=== PATIENT | male | born 1940 | race Caucasian/White ===

== ENCOUNTER 2019-03-06 09:48 | Inpatient (IN) ==
[2019-03-06] MEDS ORDERED: SODIUM CHLORIDE 0.9% 1000ML 1,000 ML IV SCH (10:30)
[2019-03-06 10:49] LABS: Prothrombin Time 10.6 Seconds (9.0-12.0)
[2019-03-06 10:58] LABS: Hemoglobin 6.6 g/dL (14.0-18.0); Mean Corpuscular Hemoglobin 26.5 pg (25-34); Mean Corpuscular Hgb Conc 31.4 g/dL (32-36); Mean Corpuscular Volume 84.3 fL (80-100); Mean Platelet Volume 9.6 fL (7.4-10.4); Platelet Count 389 K/uL (130-400); RDW Coefficient of Variation 15.7 % (11.5-14.5); RDW Standard Deviation 48.1 fL (36.4-46.3); Red Blood Count 2.49 M/uL (4.7-6.1); White Blood Count 12.73 K/uL (4.8-10.8)
[2019-03-06 10:59] LABS: Alanine Aminotransferase 24 U/L (12-78); Albumin Level 3.1 gm/dl (3.4-5.0); Aspartate Aminotransferase 31 U/L (15-37); BUN Creatinine Ratio 18.4 (10-20); Blood Urea Nitrogen 32 mg/dl (7-18); Calcium 8.8 mg/dl (8.5-10.1); Carbon Dioxide 22 mmol/L (21-32); Chloride 104 mmol/L (98-107); Est GFR (African American) 42.3; Est GFR (Non-African American) 36.5; Glucose 142 mg/dl (70-99); Lipase 125 U/L (73-393); Potassium 4.7 mmol/L (3.5-5.1); Sodium 134 mmol/L (136-145)
[2019-03-06 11:02] LABS: Albumin Globulin Ratio 0.7 (0.9-2); Alkaline Phosphatase 140 U/L (45-117); Bilirubin Direct < 0.1 mg/dl (0-0.2); Bilirubin,Total 0.5 mg/dl (0.2-1); Globulin 4.6 gm/dl (2.5-4.0); Phosphorus 3.2 mg/dl (2.5-4.9); Total Protein 7.7 gm/dl (6.4-8.2); Troponin I < 0.015 ng/ml (0-0.045)
[2019-03-06 11:07] LABS: Basophils # (auto) 0.03 K/uL (0-0.2); Basophils % (auto) 0.2 %; Eosinophils # (auto) 0.05 K/uL (0-0.5); Eosinophils % (auto) 0.4 %; Hypochromasia Present; Immature Granulocytes # (auto) 0.06 K/uL (0.00-0.02); Immature Granulocytes % (auto) 0.5 %; Lymphocytes # (auto) 1.95 K/uL (1.2-3.4); Lymphocytes % (auto) 15.3 %; Monocytes # (auto) 0.68 K/uL (0.11-0.59); Monocytes % (auto) 5.3 %; Neutrophils # (auto) 9.96 K/uL (1.4-6.5); Neutrophils % (auto) 78.3 %
--- NOTE | 2019-03-06 11:22 | XRay Report ---
XR chest 1V portable HISTORY: 78 years-old Male Chest Pain acute atypical chest pain COMPARISON: Chest radiograph 10/10/2010 TECHNIQUE: Prior median sternotomy with probable CABG. No pneumothorax, pleural effusion, focal airsp yesi consolidation or overt pulmonary edema. Degenerative changes of the shoulders and spine. Left mark ulder rotator cuff calcific tendinosis. FINDINGS: No acute process. IMPRESSION: The above report was generated using voice recognition software. It may contain grammatical, syntax o r spelling errors. Electronically signed by: Kwabena Faith M.D. 03/06/2019 11:21 AM
[2019-03-06] MEDS ORDERED: SODIUM CHLORIDE 0.9% 250 ML IV PRN ×2 (11:33→22:44)
[2019-03-06 12:05] LABS: Appearance Urine Cloudy (Clear); Bacteria Urine Automated 3+ (Negative); Bilirubin Urine Negative (Negative); Blood Urine Trace (Negative); Color Urine Yellow; Glucose Urine UA Negative (Negative); Ketones Urine Negative (Negative); Leukocyte Esterase Urine 3+ (Negative); Nitrite Urine Positive (Negative); Protein Urine 1+ (Negative); Specific Gravity Urine 1.013 (1.000-1.030); Urobilinogen Urine Negative (Negative); WBC Urine Automated >30 /hpf (0-5)
--- NOTE | 2019-03-06 12:42 | CT Scan Report ---
CT SCAN OF THE ABDOMEN AND PELVIS WITHOUT CONTRAST CLINICAL HISTORY: hematochezia COMPARISON STUDY: September 2011 TECHNIQUE: CT scan of the abdomen and pelvis was performed from the lung bases to the proximal femurs . Images are reviewed in the axial, sagittal, and coronal planes. IV contrast was not administered fo r this examination. A dose lowering technique was utilized adhering to the principles of ALARA. CT DOSE: 977.65 mGycm FINDINGS: Lower chest: Increased basilar markings are likely atelectatic. There are no significant pleural effu sions. There is no significant pericardial effusion Liver: There are few capsular calcifications. No suspicious hepatic masses are visualized on this non contrast study. Gallbladder: Surgically absent Spleen: Normal in size and attenuation. Pancreas: Masses are visualized this noncontrast study. A few calcifications are again evident the level the pa ncreatic head Adrenal glands: Unremarkable. Kidneys: There is mild right renal cortical scarring. There is mild left-sided perinephric stranding and left-sided periureteral stranding. No renal ureteral or bladder calculi are visualized. Bowel: There are no transition zones indicate bowel obstruction. There is moderate colonic diverticul osis. There are no CT findings to indicate acute diverticulitis. There are no findings to indicate ac vita appendicitis. Peritoneum: There is no intraperitoneal free air or abdominal ascites. There is a small fat-containin g supraumbilical ventral hernia. Vasculature: The abdominal aorta is normal in course and caliber. Adenopathy: None. Pelvic viscera: The prostate is enlarged. There is mild bladder wall thickening likely secondary to c hronic outlet obstruction Skeletal structures: Degenerative changes are present within the spine. There is severe spinal stenos is at the L4-5 level. There is infiltration of the anterior abdominal wall subcutaneous fat, likely s econdary to injection sites. This is present on the prior study IMPRESSION: 1. No evidence of bowel obstruction. No evidence of free air 2. Diverticulosis. No evidence of acute diverticulitis 3. Prostamegaly 4. Mild left-sided perinephric and periureteral draining. No calculi identified 5. Prostamegaly and bladder wall thickening 6. Fat-containing supraumbilical ventral hernia 7. Degenerative changes within the lumbar spine with severe L4-5 spinal stenosis Electronically signed by: Gamal Rees M.D. 03/06/2019 12:41 PM
--- NOTE | 2019-03-06 13:10 | Gastrointestinal Consultation ---
Date of Consultation March 06, 2019 Assessment & Plan (1) Rectal bleeding: Pt is a 78 y/o male seen for symptomatic anemia, rectal bleeding started Wednesday -> Wednesday morning. Hx of PVD s/p revascularization surgery in November at [facility] and been on Plavix & baby ASA. + mild abd cramping when bloody BM started on Wednesday but in general no n/v, abd pain. Bleeding stopped Wednesday morning and he had since passes loose brown stools. ED physician did rectal exam which showed brown stools w/o bloody or rectal mass/hemorrhoids. Hx of diverticulosis and adenomatous polyps, last colonoscopy 2016. CT abd/pelvis w/o contrast w/o inflammatory/obstruction signs, nor intraabdominal mass. - Agree w blood transfusion, pls monitor H/H closely - Check stool cx and Cdiff to r/o infections - Will defer colonoscopy for now given resolution of bleeding and also most likely it was a diverticular bleed. - Will follow along Supervising Physician Co-Signing Physician Notes I have seen and examined the patient with LUCILA Perry. 78 yo male with a history of diabetes, diabetic foot ulcer between 2nd and 3rd toe on Doxycyline, htn, hl, prior cabg, ckdz, peripheral vascular disease for which GI is consulted for intermittent hematochezia that has currently resolved. He reports intermittent hematochezia that began Wednesday and persisted thru Wednesday evening and associated weakness. He presents to the ER today for weakness and on lab check he was found to have a hgb of 6, getting transfused currently. He reports symptoms started after eating chili at [employer] in [place] on Wednesday. He reported mild pain around the time of the hematochezia on Wednesday but none currently. Bedside in his medicine room, he is reporting no abdominal pain or current LGI bleeding. No hematemesis, no recent NSAID use. Blood is tranfusing PE significant for an elderly male in nad, hard of hearing, rrr no mrg, pulm ctab, abd soft nt nd +bs, bilateral umbilical lipomas Labs sig for hgb 6 - getting blood Prior colon in 2017 Non-contrast CT A/P normal. Transfuse, trend hgb, diff: ischemic colitis, less likely diverticular given reports of pain with this, infectious colitis, stool studies including c diff given recent doxycycline, mesenteric doppler given ckdz, he can have clear liquids currently. History of Present Illness Reason for Consultation: Rectal Bleeding Requesting Physician: LUCILA Tomlin Attending Physician: Dr. Erinn Palencia History of Present Illness Pt is a 78 y/o male who was referred by [facility] for eval of weakness dizziness. He has hx of PVD, s/p revascularization surgery by Vascular Surgery at [facility] in November. Was placed on Plavix and been on ASA 81mg daily. Been seen at [facility] wound clinic for L toe ulcer. He reported rectal bleeding since Wednesday and having dizziness, weakness, thus sent to ED for further eval. Labs showed he's acutely anemic w Hgb 6 (was 12 in November). INR 1. BUN/Cr increased 32/1.76. Pt started having lower abd cramping on Wednesday. Had at least 2 bouts of bright red blood per rectum in large amounts on Wednesday. Then some more on Wednesday. Wednesday morning noticed another bloody discharge but less in amount. By 2nd BM on Wednesday he has noticed loose but more formed stools that's brown. He said this AM and again a little while ago in ED had loose but brown BM. Rectal exam done by ED physician (Dr. Rinaldi) showed brown stools, no blood or rectal mass/hemorrhoids. Pt is getting 1st unit PRBC transfusion now. He denies any fever, chills, n/v, abd pain. Hx of diverticulosis, adenomatous polyps. Last colonoscopy in 2016. CT abd/pelvis w/o contrast: 1. No evidence of bowel obstruction. No evidence of free air 2. Diverticulosis. No evidence of acute diverticulitis 3. Prostamegaly 4. Mild left-sided perinephric and periureteral draining. No calculi identified 5. Prostamegaly and bladder wall thickening 6. Fat-containing supraumbilical ventral hernia 7. Degenerative changes within the lumbar spine with severe L4-5 spinal stenosis Allergies Allergy/AdvReac Type Severity Reaction Status Date / Time Iodinated Contrast- Oral and Allergy Intermediate HIVES Verified 03/06/19 10:31 IV Dye Penicillins Allergy Intermediate Verified 03/06/19 10:31 Home Medications Home Medications Medication Instructions Recorded Confirmed Type aspirin 81 mg PO PM 12/01/18 03/06/19 History cholecalciferol (vitamin D3) 1,000 unit PO PM 12/01/18 03/06/19 History [Vitamin D3] cinnamon bark [Cinnamon] 1,000 mg PO BID 12/01/18 03/06/19 History txbgakadqwv-lsfrzvack-gre C-Mn 1 cap PO PM 12/01/18 03/06/19 History [Glucosamine-Chondroitin Complx] insulin NPH and regular human 74 unit SUBCUT BID 12/01/18 03/06/19 History [Novolin 70/30 U-100 Insulin] metoprolol succinate [Toprol XL] 50 mg PO QAM 12/01/18 03/06/19 History nitroglycerin [Nitrostat] 0.4 mg SUBLINGUAL DIRECTED PRN 12/01/18 03/06/19 History omega 5-kxw-yjr-fish oil [[place]-3] 1 cap PO QAM 12/01/18 03/06/19 History pioglitazone [Actos] 45 mg PO QAM 12/01/18 03/06/19 History atorvastatin 40 mg tablet 40 mg PO QAM 02/27/19 03/06/19 History clopidogrel 75 mg tablet 75 mg PO QAM 02/27/19 03/06/19 History metformin 500 mg tablet 500 mg PO BID tab 02/27/19 03/06/19 History tramadol 50 mg PO Q6H PRN 03/06/19 03/06/19 History Patient History Medical History CKD (chronic kidney disease), stage III (Chronic) PVD (peripheral vascular disease) (Chronic) s/p artherectomy left popliteal artery, angioplasty of the left superficial femoral and popliteal artery (5 mm x 150 mm balloon), and stent of L popliteal artery with a 7mm x 150 mm Everflex stent on 12/14/18 Diverticulosis (Chronic) CAD (coronary artery disease) (Chronic) Dyslipidemia (Chronic) DM type 2 (diabetes mellitus, type 2) (Chronic) Diabetes (Chronic) Dyslipidemia (Chronic) Coronary bypass graft mechanical complication Hypertension S/P angiogram of extremity Surgical History S/P CABG x 4 (Chronic) History of cholecystectomy (Chronic) S/P cholecystectomy Family History Mother Heart disease Father Heart disease Social History Preferred Language: Azerbaijani Communication Ability: Effective Hearing Ability: Use of Hearing Aid Beliefs That Will Affect Care: None marital status: Current Living Situation: Spouse current occupational status: retired Other Information That Helps Us Care for You: No Feels Safe at Home: Yes Safety Concerns: Feels Safe At This Time Smoking Status: Never smoker Hx Alcohol Use: No Hx Substance Use: No Review of Systems Review of Systems: All systems reviewed & are unremarkable except as noted in HPI & below Physical Exam Constitutional: WD/WN, vitals as above well groomed, cooperative and comfor table Eyes: PERRL, conjunctivae normal, anicteric sclerae ENMT: external ear and nose normal, oropharynx normal Respiratory: normal respiratory effort, lungs clear to auscultation Cardiovascular: RRR, no murmur, no edema Gastrointestinal (Abdomen): normal bowel sounds, soft, nontender, no hepatosplenomegaly Skin: no rashes, warm and dry no jaundice Neurologic: Motor/Sensory: no asterixis Psychiatric: A+Ox3, euthymic affect Lymphatic: no lymphedema Results & Data Vital Signs (Past 12 Hours) Vital Signs Temp Pulse Resp BP Pulse Ox 03/06/19 12:52 36.9 C 79 20 138/69 100 03/06/19 12:49 75 28 H 138/69 99 03/06/19 12:30 75 16 03/06/19 12:29 75 22 120/54 L 03/06/19 12:27 78 31 H 03/06/19 11:30 79 30 H 99 03/06/19 11:00 75 37 H 93 03/06/19 10:30 81 23 98 03/06/19 10:29 97 03/06/19 10:20 97 03/06/19 10:17 81 21 135/50 L 97 03/06/19 10:10 89 23 03/06/19 09:53 36.8 C 92 H 20 80/33 L 100 Laboratory Results Laboratory Results - last 72 hr 03/06/19 03/06/19 03/06/19 10:06 10:06 10:06 WBC 12.73 H RBC 2.49 L Hgb 6.6 L* Hct 21.0 L MCV 84.3 MCH 26.5 MCHC 31.4 L RDW Std Deviation 48.1 H RDW Coeff of Rima 15.7 H Plt Count 389 MPV 9.6 Immature Gran % (Auto) 0.5 Neut % (Auto) 78.3 Lymph % (Auto) 15.3 Sullivan % (Auto) 5.3 Eos % (Auto) 0.4 Baso % (Auto) 0.2 Immature Gran # (Auto) 0.06 H Neut # (Auto) 9.96 H Lymph # (Auto) 1.95 Sullivan # (Auto) 0.68 H Eos # (Auto) 0.05 Baso # (Auto) 0.03 Hypochromasia Present PT 10.6 INR 1.0 Sodium 134 L Potassium 4.7 Chloride 104 Carbon Dioxide 22 Anion Gap 8.0 BUN 32 H Creatinine 1.76 H Est Cr Clr Drug Dosing Not Reportable Est GFR ( Amer) 42.3 Est GFR (Non-Af Amer) 36.5 BUN/Creatinine Ratio 18.4 Glucose 142 H Calcium 8.8 Phosphorus 3.2 Magnesium 2.0 Total Bilirubin 0.5 Direct Bilirubin < 0.1 AST 31 ALT 24 Alkaline Phosphatase 140 H Troponin I < 0.015 Total Protein 7.7 Albumin 3.1 L Globulin 4.6 H Albumin/Globulin Ratio 0.7 L Lipase 125 Urine Color Urine Appearance Urine pH Ur Specific [place] Urine Protein Urine Glucose (UA) Urine Ketones Urine Blood Urine Nitrite Urine Bilirubin Urine Urobilinogen Ur Leukocyte Esterase Urine WBC (Auto) Urine RBC (Auto) U Hyaline Cast (Auto) U Epithel Cells (Auto) Urine Bacteria (Auto) Blood Type Blood Type Recheck Antibody Screen Crossmatch 03/06/19 03/06/19 03/06/19 11:14 11:50 11:51 WBC RBC Hgb Hct MCV MCH MCHC RDW Std Deviation RDW Coeff of Rima Plt Count MPV Immature Gran % (Auto) Neut % (Auto) Lymph % (Auto) Sullivan % (Auto) Eos % (Auto) Baso % (Auto) Immature Gran # (Auto) Neut # (Auto) Lymph # (Auto) Sullivan # (Auto) Eos # (Auto) Baso # (Auto) Hypochromasia PT INR Sodium Potassium Chloride Carbon Dioxide Anion Gap BUN Creatinine Est Cr Clr Drug Dosing Est GFR ( Amer) Est GFR (Non-Af Amer) BUN/Creatinine Ratio Glucose Calcium Phosphorus Magnesium Total Bilirubin Direct Bilirubin AST ALT Alkaline Phosphatase Troponin I Total Protein Albumin Globulin Albumin/Globulin Ratio Lipase Urine Color Yellow Urine Appearance Cloudy A Urine pH 6.0 Ur Specific [place] 1.013 Urine Protein 1+ H Urine Glucose (UA) Negative Urine Ketones Negative Urine Blood Trace H Urine Nitrite Positive A Urine Bilirubin Negative Urine Urobilinogen Negative Ur Leukocyte Esterase 3+ H Urine WBC (Auto) >30 H Urine RBC (Auto) 5-10 H U Hyaline Cast (Auto) 1-5 U Epithel Cells (Auto) 5-10 H Urine Bacteria (Auto) 3+ H Blood Type O Negative Blood Type Recheck O Negative Antibody Screen NEGATIVE Crossmatch See Detail
--- NOTE | 2019-03-06 13:11 | History & Physical Report ---
Date of Service March 06, 2019 Assessment & Plan (1) Lower GI bleed: (2) Anemia: -Admit to telemetry -Patient presenting from home with reports of bright red bleeding per rectum; last bleeding was 2 days ago -In the ED, Hgb found to be 6.6; patient remains hemodynamically stable -CT ABD/pelvis negative for acute findings -Noted colonoscopy from 2017 showed diverticulosis in the sigmoid to ascending colon -Suspect diverticular bleed -On aspirin and Plavix -history of PVD status post left popliteal stent 11/2018 and remote CABG in 1994 -Hold aspirin and Plavix -discussed with Dr. Pineda (vascular surgeon at [facility]) -recommends resuming aspirin and Plavix once okay with GI -Transfuse 2 units PRBCs, follow H&H -Clear liquid diet -Case discussed with LUCILA Perry (3) CKD (chronic kidney disease), stage III: -Baseline creatinine ~1.5-1.6 -Noted to be 1.7 today, mild elevation likely secondary to hypovolemia from blood loss -IVF, follow renal functions (4) PVD (peripheral vascular disease): -Aspirin/Plavix as above (5) DM type 2 (diabetes mellitus, type 2): -Hgb A1c 7.3 01/2019 -Hold oral agents and 70/30 insulin, utilize Lantus and NovoLog per protocol while hospitalized (6) Diabetic foot ulcer: -Ulcer in between left second and third toes has healed -Discussed with LUCILA Gonzalez at the wound center -no need for further antibiotics (7) CAD (coronary artery disease): -Stable, no reports of chest pain -Continue beta-alondra and statin; holding aspirin and Plavix as above (8) DVT prophylaxis: -SCDs due to GI bleeding History of Present Illness Chief Complaint: Rectal bleeding per rectum, lightheadedness Primary Care Provider: Tyson Lee, 78-year-old male who presents to the ED with bright red bleeding per rectum and lightheadedness. Patient reports his symptoms began 4 days ago. Patient reports that he was in [place] following up with his vascular surgeon and then started a restaurant on his way home. He reports after his meal, he had gone to the bathroom and had a large amount of bright red blood per rectum. He juli mates approximately 1 to 2 cups. He then began traveling home and stopped again and had another episode of bright red blood per rectum. When he got home, he reports he felt generally weak and very lightheaded. He had an additional 3-4 episodes the following day. He reports that when he was going to the bathroom, he was very lightheaded and diaphoretic. He has had some intermittent lower cramping abdominal pain. He has had nausea but denies vomiting. Reports feeling feverish however did not take his temperature. He reports normal bowel movement yesterday and today. Rectal exam performed by ED physician was negative for any signs of bleeding. Patient reports he is developed some mild exertional shortness of breath. No chest pain. He denies any syncopal events. No urinary symptoms. In the ED, hemoglobin is found to be 6.6. Patient has remained hemodynamically stable. Creatinine is 1.7 (baseline runs in the mid ones). CT ABD/pelvis is negative for acute findings. Patient received IVF and was typed and crossed for 2 units PRBC. Allergies Allergy/AdvReac Type Severity Reaction Status Date / Time Iodinated Contrast- Oral and Allergy Intermediate HIVES Verified 03/06/19 10:31 IV Dye Penicillins Allergy Intermediate Verified 03/06/19 10:31 Home Medications Home Medications Medication Instructions Recorded Confirmed Type aspirin 81 mg PO PM 12/01/18 03/06/19 History cholecalciferol (vitamin D3) 1,000 unit PO PM 12/01/18 03/06/19 History [Vitamin D3] cinnamon bark [Cinnamon] 1,000 mg PO BID 12/01/18 03/06/19 History pqutjwbsafv-swcfvgdjn-azl C-Mn 1 cap PO PM 12/01/18 03/06/19 History [Glucosamine-Chondroitin Complx] insulin NPH and regular human 74 unit SUBCUT BID 12/01/18 03/06/19 History [Novolin 70/30 U-100 Insulin] metoprolol succinate [Toprol XL] 50 mg PO QAM 12/01/18 03/06/19 History nitroglycerin [Nitrostat] 0.4 mg SUBLINGUAL DIRECTED PRN 12/01/18 03/06/19 History omega 0-yhe-mmy-fish oil [[place]-3] 1 cap PO QAM 12/01/18 03/06/19 History pioglitazone [Actos] 45 mg PO QAM 12/01/18 03/06/19 History atorvastatin 40 mg tablet 40 mg PO QAM 02/27/19 03/06/19 History clopidogrel 75 mg tablet 75 mg PO QAM 02/27/19 03/06/19 History metformin 500 mg tablet 500 mg PO BID tab 02/27/19 03/06/19 History tramadol 50 mg PO Q6H PRN 03/06/19 03/06/19 History Past Med/Surg History Medical History Hypertension (Chronic) CKD (chronic kidney disease), stage III (Chronic) PVD (peripheral vascular disease) (Chronic) s/p artherectomy left popliteal artery, angioplasty of the left superficial femoral and popliteal artery (5 mm x 150 mm balloon), and stent of L popliteal artery with a 7mm x 150 mm Everflex stent on 12/14/18 Diverticulosis (Chronic) CAD (coronary artery disease) (Chronic) Dyslipidemia (Chronic) DM type 2 (diabetes mellitus, type 2) (Chronic) Surgical History S/P CABG x 4 (Chronic) History of cholecystectomy (Chronic) Family History Mother Heart disease Father Heart disease Social History Preferred Language: Irish Communication Ability: Effective Hearing Ability: Use of Hearing Aid Beliefs That Will Affect Care: None marital status: Current Living Situation: Spouse current occupational status: retired Other Information That Helps Us Care for You: No Feels Safe at Home: Yes Safety Concerns: Feels Safe At This Time Smoking Status: Never smoker Hx Alcohol Use: No Hx Substance Use: No Review of Systems Review of Systems: ROS per HPI, all other systems reviewed and negative Physical Exam Constitutional: WD/WN, vitals as above Eyes: PERRL, conjunctivae normal, anicteric sclerae ENMT: external ear and nose normal, oropharynx normal Respiratory: normal respiratory effort, lungs clear to auscultation Cardiovascular: Rate/Rhythm: regular rate and regular rhythm Vessels: normal peripheral pulses Extremities: no edema Gastrointestinal (Abdomen): Inspection/Auscultation: normal bowel sounds; abdomen not distended Percussion/Palpation: abdomen soft and + hernia; abdomen nontender and no hepatosplenomegaly Musculoskeletal: no cyanosis or clubbing, extremities motor strength 5/5 Skin: no rashes, warm and dry Healed ulcer noted between left second and third toes Neurologic: PERRL, EOMI, accommodation nl, no face palsy, no dysarthria Psychiatric: A+Ox3, euthymic affect Results & Data Vital Signs (Past 12 Hours) Vital Signs Temp Pulse Resp BP Pulse Ox 03/06/19 12:52 36.9 C 79 20 138/69 100 03/06/19 12:49 75 28 H 138/69 99 03/06/19 12:30 75 16 03/06/19 12:29 75 22 120/54 L 03/06/19 12:27 78 31 H 03/06/19 11:30 79 30 H 99 03/06/19 11:00 75 37 H 93 03/06/19 10:30 81 23 98 03/06/19 10:29 97 03/06/19 10:20 97 03/06/19 10:17 81 21 135/50 L 97 03/06/19 10:10 89 23 03/06/19 09:53 36.8 C 92 H 20 80/33 L 100 Laboratory Results Short CBC 03/06/19 Range/Units 10:06 WBC 12.73 H (4.8-10.8) K/uL Hgb 6.6 L* (14.0-18.0) g/dL Hct 21.0 L (42-52) % Plt Count 389 (130-400) K/uL BMP 03/06/19 10:06 Sodium 134 L Potassium 4.7 Chloride 104 Carbon Dioxide 22 BUN 32 H Creatinine 1.76 H Glucose 142 H Calcium 8.8 Cardiac Enzymes 03/06/19 Range/Units 10:06 Troponin I < 0.015 (0-0.045) ng/ml Liver Function 03/06/19 Range/Units 10:06 Total Bilirubin 0.5 (0.2-1) mg/dl Direct Bilirubin < 0.1 (0-0.2) mg/dl AST 31 (15-37) U/L ALT 24 (12-78) U/L Alkaline Phosphatase 140 H (45-117) U/L Albumin 3.1 L (3.4-5.0) gm/dl Urine 03/06/19 Range/Units 11:51 Urine Color Yellow Urine Appearance Cloudy A (Clear) Urine pH 6.0 (4.5-7.5) Ur Specific [place] 1.013 (1.000-1.030) Urine Protein 1+ H (Negative) Urine Glucose (UA) Negative (Negative) Diagnostic Findings CXR FINDINGS: No acute process. CT ABD/PELVIS IMPRESSION: 1. No evidence of bowel obstruction. No evidence of free air 2. Diverticulosis. No evidence of acute diverticulitis 3. Prostamegaly 4. Mild left-sided perinephric and periureteral draining. No calculi identified 5. Prostamegaly and bladder wall thickening 6. Fat-containing supraumbilical ventral hernia 7. Degenerative changes within the lumbar spine with severe L4-5 spinal stenosis Code Status & VTE Plan Code Status Patient is a full code as per my discussion with him. VTE Prophylaxis Plan VTE Prophylaxis will be ordered: Yes Supervising Physician Co-Signing Physician Notes Attending addendum: This is a 78-year-old male presented with complaint of bright red blood per rectum multiple episodes for the last 2 days, associated with dizzy spell lightheadedness, hemoglobin found to be 6.6 (Baseline hemoglobin approximately 12-from the last lab check) CT abdomen pelvis negative for acute finding Last colonoscopy 2016 showed diverticulosis in the sigmoid ascending colon Patient was given 2 units of PRBC transfusion, with report of improvement of symptoms GI consulted, Appreciate input Continue to correct acute blood loss anemia secondary to GI bleed Due to high suspicion of diverticular bleed spontaneous resolution is most likely, no plan for colonoscopy yet Monitor in telemetry, patient ordered clear liquid diet History of peripheral vascular disease status post left popliteal stent on 11/2018 Aspirin Plavix kept on hold Will be resumed when okay with GI, no evidence of active GI Please refer to further documentation by Pina GAYTAN for discussion of other chronic Shala Crhistensen MD
[2019-03-06] MEDS ORDERED: GLUCOSE 40% GEL 15 GM TUBE PO PRN (13:40)
[2019-03-06] MEDS ORDERED: CARBOHYDRATES FOR HYPOGLYCEMIA PO PRN (13:40)
[2019-03-06] MEDS ORDERED: GLUCAGON FOR INJ 1 MG VIAL SQ PRN (13:40)
[2019-03-06] MEDS ORDERED: GLUCOSE 10 TABS/TUBE PO PRN (13:40)
[2019-03-06] MEDS ORDERED: TRAMADOL HCL 50 MG TABLET PO PRN (13:40)
[2019-03-06] MEDS ORDERED: ACETAMINOPHEN 325 MG TAB PO PRN (13:40)
[2019-03-06] MEDS ORDERED: DEXTROSE 50% 50 ML SYRINGE IV PRN (13:40)
[2019-03-06] MEDS: SODIUM CHLORIDE 0.9% 1000ML 1,000 ML IV SCH (14:37)
[2019-03-06] MEDS: INSULIN ASPART 100 UNITS/ML 3 ML PEN SC SCH ×2 (16:58→20:40)
--- NOTE | 2019-03-06 17:30 | Ultrasound Report ---
Study: Mesenteric arterial Doppler HISTORY: Rectal bleeding. Pain. Nausea. FINDINGS: Mild increase in velocity characteristics of the celiac axis as well as superior mesenteric artery. No abnormal velocity characteristics of the inferior mesenteric artery. No evidence for high degree of stenosis or occlusion. 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 No ambar dence for a significant or high degree of stenotic change. Electronically signed by: Nir Garcia M.D. 03/06/2019 5:29 PM
--- NOTE | 2019-03-06 17:41 | Emergency Department Note ---
Entered by Apoorva Mariee acting as a scribe for History of Present Illness General Chief complaint: Rectal Bleed Stated complaint: WEAKNESS,DIZZINESS Time Seen by Provider: 03/06/19 10:21 Source: patient Mode of arrival: ambulatory Limitations: no limitations History of Present Illness Onset (ago): day(s) 3 Location: abdomen and genitals Pain Consistency: + constant Maximum Pain Intensity: 0 Quality: + other (rectal bleed) Associated symptoms: + weakness and + other ( The patient complains of dizziness.) The patient is a 78 year old male with a history of diabetes and a diabetic ulcer of toe of left foot associated with diabetes mellitus due to underlying condition who presents to the ED with complaints of a constant rectal bleed that onset 3 days ago. The patient presents from the wound clinic. The patient states that he had an angioplasty stent placed in his leg in November. He notes that he was seen in the wound clinic 1 week ago and was prescribed an antibiotic. The patient reports of five large bloody bowel movements 3 days ago, one episode 2 days ago, and no bleeding since. The patient complains of weakness and dizziness. He states that he is on aspirin and Plavix. Home Medications Home Medications Medication Instructions Recorded Confirmed Type aspirin 81 mg PO PM 12/01/18 03/06/19 History cholecalciferol (vitamin D3) 1,000 unit PO PM 12/01/18 03/06/19 History [Vitamin D3] cinnamon bark [Cinnamon] 1,000 mg PO BID 12/01/18 03/06/19 History [id number]-fvnocpcbs-yzs C-Mn 1 cap PO PM 12/01/18 03/06/19 History [Glucosamine-Chondroitin Complx] insulin NPH and regular human 74 unit SUBCUT BID 12/01/18 03/06/19 History [Novolin 70/30 U-100 Insulin] metoprolol succinate [Toprol XL] 50 mg PO QAM 12/01/18 03/06/19 History nitroglycerin [Nitrostat] 0.4 mg SUBLINGUAL DIRECTED PRN 12/01/18 03/06/19 History omega 9-flt-lvk-fish oil [[place]-3] 1 cap PO QAM 12/01/18 03/06/19 History pioglitazone [Actos] 45 mg PO QAM 12/01/18 03/06/19 History atorvastatin 40 mg tablet 40 mg PO QAM 02/27/19 03/06/19 History clopidogrel 75 mg tablet 75 mg PO QAM 02/27/19 03/06/19 History metformin 500 mg tablet 500 mg PO BID tab 02/27/19 03/06/19 History tramadol 50 mg PO Q6H PRN 03/06/19 03/06/19 History Allergies Allergy/AdvReac Type Severity Reaction Status Date / Time Iodinated Contrast- Oral and Allergy Intermediate HIVES Verified 03/06/19 10:31 IV Dye Penicillins Allergy Intermediate Verified 03/06/19 10:31 Past Med/Surg History Medical History Hypertension (Chronic) CKD (chronic kidney disease), stage III (Chronic) PVD (peripheral vascular disease) (Chronic) s/p artherectomy left popliteal artery, angioplasty of the left superficial femoral and popliteal artery (5 mm x 150 mm balloon), and stent of L popliteal artery with a 7mm x 150 mm Everflex stent on 12/14/18 Diverticulosis (Chronic) CAD (coronary artery disease) (Chronic) Dyslipidemia (Chronic) DM type 2 (diabetes mellitus, type 2) (Chronic) Surgical History S/P CABG x 4 (Chronic) History of cholecystectomy (Chronic) Family History Mother Heart disease Father Heart disease Social History Preferred Language: Tajik Communication Ability: Effective Hearing Ability: Use of Hearing Aid Beliefs That Will Affect Care: None marital status: Current Living Situation: Spouse current occupational status: retired Other Information That Helps Us Care for You: No Feels Safe at Home: Yes Safety Concerns: Feels Safe At This Time Smoking Status: Never smoker Hx Alcohol Use: No Hx Substance Use: No Review of Systems See HPI for pertinent positives & negatives. and A total of 10 systems reviewed and were otherwise negative Physical Exam Vital Signs Vital Signs - 24 hr 03/06/19 09:53 03/06/19 10:10 03/06/19 10:17 Temperature 36.8 C Temperature Source Oral Sepsis Recent Fever Within 48 Hours No Sepsis Action Taken by Nursing No Action Required Pulse Rate 92 H 89 81 Pulse Rate from SpO2 Sensor 83 Respiratory Rate 20 23 21 Respiratory Effort / Characteristics Non-Labored Respiratory Depth Normal Blood Pressure 80/33 L 135/50 L Blood Pressure Mean 48 78 Pulse Oximetry 100 97 Oxygen Delivery Method Room Air Room Air 03/06/19 10:20 03/06/19 10:29 03/06/19 10:30 Temperature Temperature Source Sepsis Recent Fever Within 48 Hours Sepsis Action Taken by Nursing Pulse Rate 81 Pulse Rate from SpO2 Sensor 84 Respiratory Rate 23 Respiratory Effort / Characteristics Respiratory Depth Blood Pressure Blood Pressure Mean Pulse Oximetry 97 97 98 Oxygen Delivery Method Room Air Room Air Room Air 03/06/19 11:00 03/06/19 11:30 Temperature Temperature Source Sepsis Recent Fever Within 48 Hours Sepsis Action Taken by Nursing Pulse Rate 75 79 Pulse Rate from SpO2 Sensor 76 78 Respiratory Rate 37 H 30 H Respiratory Effort / Characteristics Respiratory Depth Blood Pressure Blood Pressure Mean Pulse Oximetry 93 99 Oxygen Delivery Method Room Air Room Air GENERAL: Awake, alert, fatigued-appearing, in no distress HENT: Normocephalic, atraumatic. Oropharynx with dry mucous membranes and otherwise unremarkable. EYES: Normal conjunctiva. Sclera non-icteric. NECK: Supple. No nuchal rigidity. FROM. No JVD. RESPIRATORY: Clear to auscultation bilaterally. CARDIAC: Regular rate, normal rhythm. Extremities warm and well perfused. Pulses equal. ABDOMEN: Soft, non-distended. No tenderness to palpation. No rebound or guarding. No masses. RECTAL: Brown stool scant guaiac positive, no blood. No hemorrhoids. MUSCULOSKELETAL: Chest examination reveals no tenderness. The back is symmetrical on inspection without obvious abnormality. There is no CVA tenderness to palpation. No joint edema. LOWER EXTREMITIES: Calves are equal size bilaterally and non-tender. No edema. No discoloration. NEURO: Normal sensorium. No sensory or motor deficits noted. SKIN: Mild pallor. No rash or jaundice noted. Course 1028: Past medical records reviewed. The patient was evaluated in room C06. A complete history and physical examination was performed. 1138: I reviewed the patient's case with Pina GAYTAN Hospitalist - [facility]. She will evaluate the patient for further management. 1304: I reviewed the patient's case with Cesia GAYTAN- Gastroenterology. Consultations Consultation #1: [id number]: I reviewed the patient's case with Pina GAYTAN Hospitalist - [facility]. She will evaluate the patient for further management. Time: 11:38 Consultation #2: [id number]: I reviewed the patient's case with Cesia GAYTAN- Gastroenterology. Time: 13:04 Administered Medications Sodium Chloride (Nss 1000ml) 1,000 mls @ 100 mls/hr IV .Q10H BREONNA Stop: 04/05/19 13:39 Last Infusion: 03/06/19 17:30 Dose: 100 mls/hr Documented by: [id number] Infusion: 03/06/19 17:00 Dose: 0 mls/hr Documented by: [id number] Admin: 03/06/19 14:37 Dose: 100 mls/hr Documented by: [id number] Insulin Aspart (Novolog Flexpen) 0 units SC ACHS BREONNA Stop: 04/05/19 16:29 Last Admin: 03/06/19 16:58 Dose: Not Given Documented by: [id number] Cosigned by: [id number] Miscellaneous (Order Awaiting Action) 1 ea N/A QS BREONNA Stop: 04/05/19 15:59 Last Admin: 03/06/19 16:58 Dose: Not Given Documented by: [id number] Discontinued Medications Sodium Chloride (Nss 1000ml) 1,000 mls @ 999 mls/hr IV .Q1H1M BREONNA Stop: 03/06/19 11:30 Last Infusion: 03/06/19 11:33 Dose: 0 mls/hr Documented by: [id number] Admin: 03/06/19 10:32 Dose: 999 mls/hr Documented by: [id number] Medical Decision Making Differential Diagnosis Differential diagnoses: Diverticulosis, AVM, coagulopathy, colitis, inflammatory bowel disease, malignancy, Michaela-Tavarez tear, esophagitis, peptic ulcer disease, variceal bleed, gastritis, epistaxis, fissure, hemorrhoids, as well as others were entertained. Medical Records Attestation: I reviewed the patient's medical records. Home Medications Current Medication List: was personally reviewed by me Laboratory Data Attestation: I reviewed the patient's lab results. Result diagrams: 03/06/19 17:42 03/06/19 10:06 Lab Results 03/06/19 03/06/19 03/06/19 Range/Units 10:06 10:06 10:06 WBC 12.73 H (4.8-10.8) K/uL RBC 2.49 L (4.7-6.1) M/uL Hgb 6.6 L* (14.0-18.0) g/dL Hct 21.0 L (42-52) % MCV 84.3 (80-100) fL MCH 26.5 (25-34) pg MCHC 31.4 L (32-36) g/dL RDW Std Deviation 48.1 H (36.4-46.3) fL RDW Coeff of Rima 15.7 H (11.5-14.5) % Plt Count 389 (130-400) K/uL MPV 9.6 (7.4-10.4) fL Immature Gran % (Auto) 0.5 % Neut % (Auto) 78.3 % Lymph % (Auto) 15.3 % [place] % (Auto) 5.3 % Eos % (Auto) 0.4 % Baso % (Auto) 0.2 % Immature Gran # (Auto) 0.06 H (0.00-0.02) K/uL Neut # (Auto) 9.96 H (1.4-6.5) K/uL Lymph # (Auto) 1.95 (1.2-3.4) K/uL [place] # (Auto) 0.68 H (0.11-0.59) K/uL Eos # (Auto) 0.05 (0-0.5) K/uL Baso # (Auto) 0.03 (0-0.2) K/uL Hypochromasia Present PT 10.6 (9.0-12.0) Seconds INR 1.0 (0.9-1.1) Sodium 134 L (136-145) mmol/L Potassium 4.7 (3.5-5.1) mmol/L Chloride 104 (98-107) mmol/L Carbon Dioxide 22 (21-32) mmol/L Anion Gap 8.0 (3-11) BUN 32 H (7-18) mg/dl Creatinine 1.76 H (0.6-1.4) mg/dl Est Cr Clr Drug Dosing Not Reportable Est GFR ( Amer) 42.3 Est GFR (Non-Af Amer) 36.5 BUN/Creatinine Ratio 18.4 (10-20) Glucose 142 H (70-99) mg/dl Calcium 8.8 (8.5-10.1) mg/dl Phosphorus 3.2 (2.5-4.9) mg/dl Magnesium 2.0 (1.8-2.4) mg/dl Total Bilirubin 0.5 (0.2-1) mg/dl Direct Bilirubin < 0.1 (0-0.2) mg/dl AST 31 (15-37) U/L ALT 24 (12-78) U/L Alkaline Phosphatase 140 H (45-117) U/L Troponin I < 0.015 (0-0.045) ng/ml Total Protein 7.7 (6.4-8.2) gm/dl Albumin 3.1 L (3.4-5.0) gm/dl Globulin 4.6 H (2.5-4.0) gm/dl Albumin/Globulin Ratio 0.7 L (0.9-2) Lipase 125 (73-393) U/L Urine Color Urine Appearance (Clear) Urine pH (4.5-7.5) Ur Specific [place] (1.000-1.030) Urine Protein (Negative) Urine Glucose (UA) (Negative) Urine Ketones (Negative) Urine Blood (Negative) Urine Nitrite (Negative) Urine Bilirubin (Negative) Urine Urobilinogen (Negative) Ur Leukocyte Esterase (Negative) Urine WBC (Auto) (0-5) /hpf Urine RBC (Auto) (0-4) /hpf U Hyaline Cast (Auto) (0-5) /lpf U Epithel Cells (Auto) (0-5) /lpf Urine Bacteria (Auto) (Negative) Blood Type Blood Type Recheck Antibody Screen Crossmatch 03/06/19 03/06/19 03/06/19 Range/Units 11:14 11:50 11:51 WBC (4.8-10.8) K/uL RBC (4.7-6.1) M/uL Hgb (14.0-18.0) g/dL Hct (42-52) % MCV (80-100) fL MCH (25-34) pg MCHC (32-36) g/dL RDW Std Deviation (36.4-46.3) fL RDW Coeff of Rima (11.5-14.5) % Plt Count (130-400) K/uL MPV (7.4-10.4) fL Immature Gran % (Auto) % Neut % (Auto) % Lymph % (Auto) % [place] % (Auto) % Eos % (Auto) % Baso % (Auto) % Immature Gran # (Auto) (0.00-0.02) K/uL Neut # (Auto) (1.4-6.5) K/uL Lymph # (Auto) (1.2-3.4) K/uL [place] # (Auto) (0.11-0.59) K/uL Eos # (Auto) (0-0.5) K/uL Baso # (Auto) (0-0.2) K/uL Hypochromasia PT (9.0-12.0) Seconds INR (0.9-1.1) Sodium (136-145) mmol/L Potassium (3.5-5.1) mmol/L Chloride (98-107) mmol/L Carbon Dioxide (21-32) mmol/L Anion Gap (3-11) BUN (7-18) mg/dl Creatinine (0.6-1.4) mg/dl Est Cr Clr Drug Dosing Est GFR ( Amer) Est GFR (Non-Af Amer) BUN/Creatinine Ratio (10-20) Glucose (70-99) mg/dl Calcium (8.5-10.1) mg/dl Phosphorus (2.5-4.9) mg/dl Magnesium (1.8-2.4) mg/dl Total Bilirubin (0.2-1) mg/dl Direct Bilirubin (0-0.2) mg/dl AST (15-37) U/L ALT (12-78) U/L Alkaline Phosphatase (45-117) U/L Troponin I (0-0.045) ng/ml Total Protein (6.4-8.2) gm/dl Albumin (3.4-5.0) gm/dl Globulin (2.5-4.0) gm/dl Albumin/Globulin Ratio (0.9-2) Lipase (73-393) U/L Urine Color Yellow Urine Appearance Cloudy A (Clear) Urine pH 6.0 (4.5-7.5) Ur Specific [place] 1.013 (1.000-1.030) Urine Protein 1+ H (Negative) Urine Glucose (UA) Negative (Negative) Urine Ketones Negative (Negative) Urine Blood Trace H (Negative) Urine Nitrite Positive A (Negative) Urine Bilirubin Negative (Negative) Urine Urobilinogen Negative (Negative) Ur Leukocyte Esterase 3+ H (Negative) Urine WBC (Auto) >30 H (0-5) /hpf Urine RBC (Auto) 5-10 H (0-4) /hpf U Hyaline Cast (Auto) 1-5 (0-5) /lpf U Epithel Cells (Auto) 5-10 H (0-5) /lpf Urine Bacteria (Auto) 3+ H (Negative) Blood Type O Negative Blood Type Recheck O Negative Antibody Screen NEGATIVE Crossmatch See Detail Imaging Data Radiologist's Impression: Radiology results as stated below per my review and the radiologist's interpretation: CT SCAN OF THE ABDOMEN AND PELVIS WITHOUT CONTRAST CLINICAL HISTORY: hematochezia COMPARISON STUDY: September 2011 TECHNIQUE: CT scan of the abdomen and pelvis was performed from the lung bases to the proximal femurs. Images are reviewed in the axial, sagittal, and coronal planes. IV contrast was not administered for this examination. A dose lowering technique was utilized adhering to the principles of ALARA. CT DOSE: 977.65 mGycm FINDINGS: Lower chest: Increased basilar markings are likely atelectatic. There are no significant pleural effusions. There is no significant pericardial effusion Liver: There are few capsular calcifications. No suspicious hepatic masses are visualized on this noncontrast study. Gallbladder: Surgically absent Spleen: Normal in size and attenuation. Pancreas: Masses are visualized this noncontrast study. A few calcifications are again evident the level the pancreatic head Adrenal glands: Unremarkable. Kidneys: There is mild right renal cortical scarring. There is mild left-sided perinephric stranding and left-sided periureteral stranding. No renal ureteral or bladder calculi are visualized. Bowel: There are no transition zones indicate bowel obstruction. There is moderate colonic diverticulosis. There are no CT findings to indicate acute diverticulitis. There are no findings to indicate acute appendicitis. Peritoneum: There is no intraperitoneal free air or abdominal ascites. There is a small fat-containing supraumbilical ventral hernia. Vasculature: The abdominal aorta is normal in course and caliber. Adenopathy: None. Pelvic viscera: The prostate is enlarged. There is mild bladder wall thickening likely secondary to chronic outlet obstruction Skeletal structures: Degenerative changes are present within the spine. There is severe spinal stenosis at the L4-5 level. There is infiltration of the anterior abdominal wall subcutaneous fat, likely secondary to injection sites. This is present on the prior study IMPRESSION: 1. No evidence of bowel obstruction. No evidence of free air 2. Diverticulosis. No evidence of acute diverticulitis 3. Prostamegaly 4. Mild left-sided perinephric and periureteral draining. No calculi identified 5. Prostamegaly and bladder wall thickening 6. Fat-containing supraumbilical ventral hernia 7. Degenerative changes within the lumbar spine with severe L4-5 spinal stenosis Electronically signed by: Gamal Rees M.D. 03/06/2019 12:41 PM Dictated: 03/06/19 1233 Transcribed: 03/06/19 1233 XR chest 1V portable HISTORY: 78 years-old Male Chest Pain acute atypical chest pain COMPARISON: Chest radiograph 10/10/2010 TECHNIQUE: Prior median sternotomy with probable CABG. No pneumothorax, pleural effusion, focal airspace consolidation or overt pulmonary edema. Degenerative changes of the shoulders and spine. Left shoulder rotator cuff calcific tendinosis. FINDINGS: No acute process. IMPRESSION: The above report was generated using voice recognition software. It may contain grammatical, syntax or spelling errors. Electronically signed by: Kwabena Faith M.D. 03/06/2019 11:21 AM Dictated: 03/06/19 1120 Transcribed: 03/06/19 1120 ECG Data Attestation: I personally reviewed and interpreted this ECG as follows: Indication: other (Rectal bleed) Rate (beats per minute): 90 Rhythm: sinus rhythm Findings: + PVC; no acute ischemic change Comparison ECG Date: from (11/30/2018) Change: no significant change Blood Pressure Blood Pressure Findings: Normal blood pressure MDM Narrative The patient is a pleasant 78-year-old gentleman with a past medical history of CKD, CAD status post CABG, peripheral vascular disease status post left lower extremity angioplasty/stent in November on Plavix who presents emergency department with red blood per rectum with 4-5 episodes on Wednesday with additional episode on Wednesday with subsequent improvement however with associated generalized weakness and lightheadedness per hpi. On arrival patient is fatigued appearing but no acute distress, afebrile stable vital signs. Rectal exam demonstrates brown stool that is scant guaiac positive. Abdomen is benign. EKG without overt acute ischemia. WBC 12.7, nonspecific. H/H 6.6/ down from in November. Creatinine 1.7 increased from 1.2 in November. No acidosis. Troponin w negative. CT abdomen pelvis negative for free air. Does show diverticulosis without diverticulitis. Additionally shown is left-sided perinephric stranding and left-sided periureteral stranding. UA is pending. Patient was consented an d ordered for 2 units of PRBCs given his severe anemia. Case was discussed with Thom Workman, who will evaluate the patient for admission. Impression & Plan Severe anemia, GI bleed Critical Care Time Critical Care Time: Yes (35) Total Critical Care Time: 35 I have personally spent 35 minutes of critical care time in the direct management of this patient. This includes bedside care, interpretation of diagnostic studies, and testing, discussion with consultants, patient, and family members, and other required patient management activities. This 35 minutes is in excess of all separately billable procedures. Discharge Plan Visit Data *Final* Discharge Date/Time: 03/06/19 13:10 Chief Complaint: Rectal Bleed Stated Complaint: WEAKNESS,DIZZINESS ED Provider: Manolo Rinaldi Discharge Problem: Severe anemia, GI bleed Patient Disposition: Admitted As Inpatient Discharge Instructions Interventions: ED Discharge Assessment Last Done: 03/06/19 13:10 The scribe's documentation has been prepared under my direction and personally reviewed by me in its entirety. I confirm that the note above accurately reflects all work, treatment, procedures, and medical decision making performed by me.
[2019-03-06 18:00] LABS: Hematocrit (blood only) 26.1 % (42-52); Hemoglobin 8.5 g/dL (14.0-18.0)
[2019-03-06] MEDS: INSULIN GLARGINE SOLOSTAR 100 UNITS/ML 3 ML PEN SC SCH (20:39)
[2019-03-06] MEDS: CHOLECALCIFEROL 1,000 UNITS TAB PO SCH (20:41)
[2019-03-06] MEDS ORDERED: NON-FORMULARY MEDICATION (Cinnamon Bark [Cinnamon] 1,000 MG) PO SCH (21:00)
[2019-03-06 21:41] LABS: Hematocrit (blood only) 22.8 % (42-52); Hemoglobin 7.7 g/dL (14.0-18.0)
[2019-03-06] MEDS ORDERED: ACETAMINOPHEN 325 MG TAB PO STA (22:44)
[2019-03-06] MEDS ORDERED: FUROSEMIDE 20 MG in SYRINGE 0 ML IV ONE (23:30)
[2019-03-07] MEDS: SODIUM CHLORIDE 0.9% 1000ML 1,000 ML IV SCH ×2 (05:39→12:50)
[2019-03-07 06:54] LABS: Hematocrit (blood only) 29.4 % (42-52); Hemoglobin 9.9 g/dL (14.0-18.0); Mean Corpuscular Hemoglobin 28.4 pg (25-34); Mean Corpuscular Hgb Conc 33.7 g/dL (32-36); Mean Corpuscular Volume 84.2 fL (80-100); Mean Platelet Volume 9.4 fL (7.4-10.4); Platelet Count 260 K/uL (130-400); RDW Coefficient of Variation 15.2 % (11.5-14.5); RDW Standard Deviation 46.5 fL (36.4-46.3); Red Blood Count 3.49 M/uL (4.7-6.1); White Blood Count 10.56 K/uL (4.8-10.8)
[2019-03-07 07:17] LABS: Blood Urea Nitrogen 21 mg/dl (7-18); Calcium 8.4 mg/dl (8.5-10.1); Carbon Dioxide 27 mmol/L (21-32); Chloride 107 mmol/L (98-107); Est GFR (African American) 50.1; Est GFR (Non-African American) 43.2; Glucose 87 mg/dl (70-99); Potassium 4.3 mmol/L (3.5-5.1); Sodium 139 mmol/L (136-145)
[2019-03-07] MEDS: INSULIN GLARGINE SOLOSTAR 100 UNITS/ML 3 ML PEN SC SCH ×2 (08:07→20:36)
[2019-03-07] MEDS: METOPROLOL SUCC 50MG EXT REL TAB PO SCH (08:07)
[2019-03-07] MEDS: ATORVASTATIN 40 MG TAB PO SCH (08:07)
[2019-03-07] MEDS: INSULIN ASPART 100 UNITS/ML 3 ML PEN SC SCH ×4 (08:08→17:21)
--- NOTE | 2019-03-07 08:51 | Gastroenterology Progress Note ---
Date of Service March 07, 2019 Assessment & Plan (1) Rectal bleeding: Pt is a 78 y/o male seen for symptomatic anemia, rectal bleeding started Wednesday. Hx of PVD s/p revascularization surgery in November at [facility] and been on Plavix & baby ASA. + mild abd cramping when bloody BM started on Wednesday but in general no n/v, abd pain. Bleeding stopped Wednesday morning and he had since passes loose brown stools. ED physician did rectal exam which showed brown stools w/o bloody or rectal mass/hemorrhoids. Hx of diverticulosis and adenomatous polyps, last colonoscopy 2016. CT abd/pelvis w/o contrast w/o inflammatory/obstruction signs, nor intraabdominal mass. U/S mesentery showed moderate atherosclerotic change of the celiac axis and superior mesenteric artery. No evidence for a significant or high degree of stenotic change. He received 4U PRBC transfusion, Hgb up to 9.9 today. Did have another bout of bloody stools yesterday afternoon but again cleared up in the evening. No n/v. On exam no tenderness on palpation. - Monitor H/H and transfuse prn - Cdiff negative, f/u stool cx. - Ecoli UTI, defer treatment to primary team. - Possibly advance his diet if no continued bloody stools by the afternoon. - Continue to defer colonoscopy at this time. Supervising Physician Co-Signing Physician Notes I have seen and examined the patient and discussed the management with LUCILA Perry. ? one episode of bloody stools yesterday- resolved. Has remained hemodynamically stable. Hgb has risen from 6 to 9, no bun rise. Overall feeling well- PE - no acute distress, normal excusion of lungs, abd - soft nt nd +bs, bilateral fat lipomas near umbilicus Labs reviewed Mesenteric doppler reviewed- mild atherosclerosis near the celiac axis Suspect his bleed may have been diverticular given no reports of abdominal pain anymore with his bleeding. Supportive care. Full liquid diet. Resumption of plavix per primary team, likely tomorrow if no further bleeding. No plans for colonoscopy as unlikely to change overall management. OK to dc home tomorrow after restarting plavix and if no further bleeding. Subjective Pt has total of 4U PRBC transfusion yesterday. Hgb up to 9.9. He reported last BM w blood was around 2P, did have another bout of loose but brown and non bloody stools yesterday evening. Denies any N/V, mild LLQ abd pain. Tolerating CL diet well. Noted U/S mesentery result: Moderate atherosclerotic change of the celiac axis and superior mesenteric artery. No evidence for a significant or high degree of stenotic change. Review of Systems Review of Systems: All systems reviewed & are unremarkable except as noted in HPI & below Physical Exam Constitutional: WD/WN, vitals as above well groomed, cooperative and comfortable Eyes: PERRL, conjunctivae normal, anicteric sclerae ENMT: external ear and nose normal, oropharynx normal Respiratory: normal respiratory effort, lungs clear to auscultation Cardiovascular: RRR, no murmur, no edema Gastrointestinal (Abdomen): normal bowel sounds, soft, nontender, no hepatosplenomegaly Skin: no rashes, warm and dry no jaundice Neurologic: Motor/Sensory: no asterixis Psychiatric: A+Ox3, euthymic affect Lymphatic: no lymphedema Results & Data Vital Signs (Past 12 Hours) Vital Signs Temp Pulse Pulse Resp BP BP Pulse Ox 03/07/19 07:00 36.3 C L 72 18 139/61 96 03/07/19 05:35 36.3 C L 69 20 122/50 L 94 03/07/19 04:30 63 16 96/50 L 93 03/07/19 03:30 71 16 127/54 L 92 03/07/19 03:00 36.5 C 70 16 128/58 L 97 03/07/19 02:45 36.5 C 71 16 123/57 L 96 03/07/19 02:28 36.6 C 71 16 117/47 L 97 03/07/19 01:20 36.6 C 66 16 111/43 L 96 03/07/19 01:00 122/48 L 03/07/19 00:45 80 89/45 L 03/07/19 00:15 36.4 C L 76 16 123/51 L 95 03/06/19 23:45 69 113/49 L 03/06/19 23:15 36.7 C 93 H 122/54 L 100 03/06/19 23:06 36.7 C 73 20 117/46 L 96
[2019-03-07] MEDS ORDERED: cefTRIAXone SODIUM 2,000 MG in DEXTROSE 5% 50 ML IV SCH (12:00)
--- NOTE | 2019-03-07 14:57 | Hospitalist Progress Note ---
Date of Service March 07, 2019 Assessment & Plan (1) Lower GI bleed: Resented with bright red blood per rectum multiple episodes With symptomatic anemia hemoglobin 6 .6 Appreciate input from GI, possible diverticular bleed Recommended conservative approach with monitoring H&H/transfuse as needed No plan for colonoscopy yet-has diverticular bleed usually stops spontaneous Diet advanced to full liquid Continue to hold aspirin Plavix (2) Anemia: -Patient presented from home with reports of bright red bleeding per rectum; last bleeding was 2 days ago -In the ED, Hgb found to be 6.6; patient remains hemodynamically stable -CT ABD/pelvis diverticulosis, no evidence of diverticulitis -Noted colonoscopy from 2017 showed diverticulosis in the sigmoid to ascending colon -Suspect diverticular bleed -GI consulted, appreciate input Status post 4 unit of PRBC transfusion hemoglobin improved to 9.9 Continue to follow labs (3) Acute renal failure superimposed on stage 3 chronic kidney disease: -Baseline creatinine ~1.5-1.6 -Patient with worsening of creatinine, secondary to hypovolemia, acute blood loss anemia secondary to GI bleed Creatinine improved to 1.5 with IV fluids and PRBC transfusion Follow PRP Avoid NSAIDs, contrast studies (4) CKD (chronic kidney disease), stage III: (5) Acute blood loss anemia: Presented with symptomatic anemia, with dizzy spell lightheadedness, hemoglobin 6.6 Acute blood loss anemia secondary to lower GI bleed Multiple episodes of bright red blood per rectum Status post 4 units of PRBC transfusion hemoglobin improved to 9.9 No further GI bleed episode since this morning Continue to monitor GI consulted, appreciate input (6) UTI (urinary tract infection): Urine culture: Positive for E. coli Empiric antibiotic with IV Rocephin Adjust antibiotic once sensitivity is available (7) PVD (peripheral vascular disease): -history of PVD status post left popliteal stent 11/2018 and remote CABG in 1994 -aspirin and Plavix kept on hold since admission secondary to active GI bleed- discussed with Dr. Pineda (vascular surgeon at [facility]) - Okay to hold dual antiplatelets in the setting of acute GI bleed Recommends to resume when acceptable bleeding risk for GI (8) DM type 2 (diabetes mellitus, type 2): -Hgb A1c 7.3 01/2019 -Hold oral agents and 70/30 insulin, - utilize Lantus and NovoLog per protocol while hospitalized (9) Diabetic foot ulcer: -Ulcer in between left second and third toes has healed -Discussed with LUCILA Gonzalez at the wound center -no need for further antibiotics (10) CAD (coronary artery disease): -Stable, no reports of chest pain -Continue beta-alondra and statin; holding aspirin and Plavix as above (11) DVT prophylaxis: -SCDs due to GI bleeding CODE STATUS: Full code Disposition expected to be discharged home when medically stable Subjective No further episode of blood in stool today, No abdominal pain, no nausea vomiting Required total 4 units of PRBC transfusion, hemoglobin improved to 9.92 with improvement of symptoms of dizzy spell lightheadedness Appreciate input from GI Is to continue to observe hold of aspirin and Plavix, No plan for colonoscopy, as lower extremity GI bleed possible secondary diverticular -usually is stopped spontaneously Physical Exam Constitutional: WD/WN, vitals as above Eyes: PERRL, conjunctivae normal, anicteric sclerae ENMT: external ear and nose normal, oropharynx normal Respiratory: normal respiratory effort, lungs clear to auscultation Cardiovascular: Rate/Rhythm: regular rate and regular rhythm Vessels: normal peripheral pulses Extremities: no edema Gastrointestinal (Abdomen): Inspection/Auscultation: normal bowel sounds; abdomen not distended Percussion/Palpation: abdomen soft and + hernia; abdomen nontender and no hepatosplenomegaly Musculoskeletal: no cyanosis or clubbing, extremities motor strength 5/5 Skin: no rashes, warm and dry Neurologic: PERRL, EOMI, accommodation nl, no face palsy, no dysarthria Psychiatric: A+Ox3, euthymic affect Results & Data Vital Signs (Past 12 Hours) Vital Signs Temp Pulse Pulse Resp BP BP Pulse Ox 03/07/19 11:59 36.7 C 82 18 145/68 H 98 03/07/19 07:00 36.3 C L 72 18 139/61 96 03/07/19 05:35 36.3 C L 69 20 122/50 L 94 03/07/19 04:30 63 16 96/50 L 93 03/07/19 03:30 71 16 127/54 L 92 03/07/19 03:00 36.5 C 70 16 128/58 L 97 (1) UTI (urinary tract infection) Hematuria presence: without hematuria Urinary tract infection type: site unspecified Qualified Code(s): N39.0 - Urinary tract infection, site not specified (2) Anemia Iron deficiency anemia type: unspecified iron deficiency (3) Acute renal failure superimposed on stage 3 chronic kidney disease Acute renal failure type: unspecified Qualified Code(s): N17.9 - Acute kidney failure, unspecified; N18.3 - Chronic kidney disease, stage 3 (moderate)
[2019-03-07] MEDS ORDERED: cefTRIAXone SODIUM 1,000 MG in DEXTROSE 5% 50 ML IV ONE (16:07)
[2019-03-07] MEDS: CHOLECALCIFEROL 1,000 UNITS TAB PO SCH (20:32)
[2019-03-07 20:55] LABS: Hematocrit (blood only) 30.5 % (42-52); Hemoglobin 10.3 g/dL (14.0-18.0)
[2019-03-08 06:53] LABS: Hemoglobin 10.5 g/dL (14.0-18.0); Mean Corpuscular Hemoglobin 28.2 pg (25-34); Mean Corpuscular Hgb Conc 32.8 g/dL (32-36); Mean Platelet Volume 9.4 fL (7.4-10.4); Platelet Count 282 K/uL (130-400); RDW Coefficient of Variation 15.8 % (11.5-14.5); RDW Standard Deviation 48.7 fL (36.4-46.3); Red Blood Count 3.72 M/uL (4.7-6.1); White Blood Count 9.83 K/uL (4.8-10.8)
[2019-03-08 07:16] LABS: BUN Creatinine Ratio 12.1 (10-20); Blood Urea Nitrogen 19 mg/dl (7-18); Calcium 8.6 mg/dl (8.5-10.1); Carbon Dioxide 28 mmol/L (21-32); Chloride 107 mmol/L (98-107); Est GFR (African American) 49.3; Est GFR (Non-African American) 42.5; Glucose 110 mg/dl (70-99); Sodium 139 mmol/L (136-145)
[2019-03-08] MEDS: INSULIN GLARGINE SOLOSTAR 100 UNITS/ML 3 ML PEN SC SCH ×2 (08:01→20:37)
[2019-03-08] MEDS: ATORVASTATIN 40 MG TAB PO SCH (08:01)
[2019-03-08] MEDS: METOPROLOL SUCC 50MG EXT REL TAB PO SCH (08:01)
[2019-03-08] MEDS: INSULIN ASPART 100 UNITS/ML 3 ML PEN SC SCH ×4 (08:02→20:35)
--- NOTE | 2019-03-08 08:46 | Hospitalist Progress Note ---
Date of Service March 08, 2019 Assessment & Plan (1) Lower GI bleed: Resented with bright red blood per rectum - multiple episodes. Had one more episode overnight. -Likely diverticular bleeding -Symptomatic anemia with HB - 6.6 --> Now 10.5 -Hold Aspirin, Plavix -No plan for colonoscopy yet as likely spontaneous resolution expected- per d/w GI -Work up - CT ABD/pelvis diverticulosis, no evidence of diverticulitis. Noted colonoscopy from 2017 showed diverticulosis in the sigmoid to ascending colon (2) Anemia: ACUTE BLOOD LOSS ANEMIA SECONDARY TO GI BLEEDING -Patient presented from home with reports of bright red bleeding per rectum; last bleeding was 2 days ago -In the ED, Hgb found to be 6.6; hemodynamically stable --> Now 10.5 -S/P PRBCs 4 units since admission -GI consulted, appreciate inputs (3) Acute renal failure superimposed on stage 3 chronic kidney disease: -Baseline creatinine ~1.5-1.6 -Patient presented with worsening of creatinine, secondary to hypovolemia, acute blood loss anemia secondary to GI bleed -Creatinine improved to 1.5 with IV fluids and PRBC transfusion. IVF discontinued -Avoid NSAIDs, contrast studies (4) CKD (chronic kidney disease), stage III: (5) Acute blood loss anemia: (6) UTI (urinary tract infection): -Urine culture: Positive for E. coli- sanford sensitive -Empiric antibiotic with IV Rocephin - Day 1--> Change to Ciprofloxacin 500 mg BID to complete total of 7 days course (7) PVD (peripheral vascular disease): Hx of of PVD status post left popliteal stent 11/2018 and remote CABG in 1994 -Aspirin and Plavix kept on hold since admission secondary to active GI bleed- discussed with Dr. Pineda (vascular surgeon at [facility] by Dr Christensen) - -Okay to hold dual antiplatelets in the setting of acute GI bleed -Recommends to resume when acceptable bleeding risk for GI. Per discussion with GI, recommend holding dual antiplatelet at least for another week (8) DM type 2 (diabetes mellitus, type 2): -Hgb A1c 7.3 01/2019 -Hold oral agents and 70/30 insulin, -Utilize Lantus and NovoLog per protocol while hospitalized (9) Diabetic foot ulcer: -Ulcer in between left second and third toes has healed -Discussed by Dr Christensen with LUCILA Gonzalez at the wound center -no need for further antibiotics (10) CAD (coronary artery disease): -Stable, no reports of chest pain -Continue beta-alondra and statin; holding aspirin and Plavix as above (11) DVT prophylaxis: -SCDs due to GI bleeding CODE STATUS: Full code Disposition: Expected to be discharged home when medically stable Continue with liquid diet and monitor for next 24 hours Discussed with GI Updated son by bedside Subjective Patient had another episode of bloody bowel movement yesterday night. No more episodes since then. Denies any dizziness, syncope. No shortness of breath, chest pain, fever, chills, abdominal pain. On liquid diet Physical Exam Physical Exam: GENERAL- AAOX3, No acute distress LUNGS- Air entry bilaterally equal. No rales, rhonchi, crackles, wheezes heard. HEART- Regular rate and rhythm. No murmurs ABDOMEN- Soft, non tender, non distended, Bowel sounds heard. EXTREMITIES- Good peripheral pulses, no edema, left second and third toe ulcer, healed Results & Data Vital Signs (Past 12 Hours) Vital Signs Temp Pulse Pulse Resp BP BP Pulse Ox 03/08/19 07:10 36.4 C L 68 18 131/59 L 92 03/08/19 04:13 36.7 C 78 18 141/68 H 96 03/08/19 00:18 73 03/07/19 23:00 36.8 C 80 17 109/40 L 97 (1) UTI (urinary tract infection) Hematuria presence: without hematuria Urinary tract infection type: site unspecified Qualified Code(s): N39.0 - Urinary tract infection, site not specified (2) Anemia Iron deficiency anemia type: unspecified iron deficiency (3) Acute renal failure superimposed on stage 3 chronic kidney disease Acute renal failure type: unspecified Qualified Code(s): N17.9 - Acute kidney failure, unspecified; N18.3 - Chronic kidney disease, stage 3 (moderate)
--- NOTE | 2019-03-08 11:26 | Gastroenterology Progress Note ---
Date of Service March 08, 2019 Assessment & Plan (1) Lower GI bleed: Most likely a diverticular bleed. These typically resolve without intervention. They also have this pattern of bleeding for a few days and an additional small bleed a few days after. Because of this additional bloody BM last evening, would hold ASA, Plavix until next Wednesday if possible dependent on risk of stent occlusion. Continue full liquid diet. Watch Hb/Hct, BUN. Would continue to defer repeat colonoscopy (completed 2 yrs ago, known hx of diverticulosis and doing endoscopy does not typically change the outcome). Will continue to follow. Present on Admission?: Yes Supervising Physician Co-Signing Physician Notes I have seen and examined the patient and discussed the management with LUCILA Mendoza. One reported bloody bowel movement overnite- no hemodynamic instability. Hgb has actually risen today, BUN remains normal. No complaints of abdominal pain at all since admission PE - white male in nad, HEENT- perrla, Pulm- normal excursion of the chest, abd - soft nt nd +bs, bilateral lipomas Hgb 10 today, BUN remains normal, hemodynamically stable Suspect his LGI bleeding that is now intermittent is diverticular especially given no associated abdominal pain- this will likely resolved on it's own. Plavix is on hold- perhaps restarting this next week would be advised. Aspirin could be used currently. He's tolerating PO. Subjective Was asked to re-evaluate Mr. Allison today due to bloody BM last night. Rectal bleeding from Wednesday to Wednesday then one more bloody BM last night around 8PM. Pt says, "not as bloody as before but with some small clots - like leaves." Hb on arrival 6.6, received a total of 4 units of blood most recent transfusion being early yesterday. Hb yesterday 9.9 increased to 10.5 this morning. BUN normal at 19. Pt denies any abdominal pain, nausea. Hx of DM, PVD; placement of a left popliteal stent 11/2018 and remote CABG in 1994; on Plavix/ASA. Review of Systems Review of Systems: ROS: Gen: no weakness or dizziness since received blood transfusions. Eyes: No eye redness, or pain, no recent vision changes Resp: No SOB, no cough Cardio: No palpitations/irregular beats, no chest pain GI: No abdominal pain, no nausea/vomiting : Denies pain on urination Skin: No jaundice, itching or new rashes Physical Exam Constitutional: WD/WN, vitals as above Eyes: PERRL, conjunctivae normal, anicteric sclerae ENMT: external ear and nose normal, oropharynx normal Neck: trachea midline, no thyromegaly Respiratory: normal respiratory effort, lungs clear to auscultation Cardiovascular: RRR, no murmur, no edema Gastrointestinal (Abdomen): normal bowel sounds, soft, nontender, no hepatosplenomegaly Rectal Exam: + hemorrhoids (small, external); no rectal tenderness Brown stool with dark red blood on glove. Skin: no rashes, warm and dry Neurologic: PERRL, EOMI, accommodation nl, no face palsy, no dysarthria Psychiatric: A+Ox3, euthymic affect Lymphatic: no cervical or axillary lymphadenopathy Results & Data Vital Signs (Past 12 Hours) Vital Signs Temp Pulse Pulse Resp BP BP Pulse Ox 03/08/19 07:10 36.4 C L 68 18 131/59 L 92 03/08/19 04:13 36.7 C 78 18 141/68 H 96 03/08/19 00:18 73 Laboratory Results Hb 10.5 BUN 19 Diagnostic Findings Non contrast CT: IMPRESSION: 1. No evidence of bowel obstruction. No evidence of free air 2. Diverticulosis. No evidence of acute diverticulitis 3. Prostamegaly 4. Mild left-sided perinephric and periureteral draining. No calculi identified 5. Prostamegaly and bladder wall thickening 6. Fat-containing supraumbilical ventral hernia 7. 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
[2019-03-08] MEDS ORDERED: cefTRIAXone SODIUM 1,000 MG in DEXTROSE 5% 50 ML IV SCH (12:00)
[2019-03-08] MEDS: CIPROFLOXACIN 500 MG TAB PO SCH ×2 (15:06→20:36)
[2019-03-08] MEDS ORDERED: cefTRIAXone SODIUM 2,000 MG in DEXTROSE 5% 50 ML IV SCH (16:00)
[2019-03-08] MEDS: CHOLECALCIFEROL 1,000 UNITS TAB PO SCH (20:37)
[2019-03-09 05:50] LABS: Hematocrit (blood only) 32.1 % (42-52); Hemoglobin 10.5 g/dL (14.0-18.0); Mean Corpuscular Hemoglobin 28.2 pg (25-34); Mean Corpuscular Hgb Conc 32.7 g/dL (32-36); Mean Corpuscular Volume 86.1 fL (80-100); Mean Platelet Volume 9.1 fL (7.4-10.4); Platelet Count 261 K/uL (130-400); RDW Coefficient of Variation 15.8 % (11.5-14.5); RDW Standard Deviation 48.8 fL (36.4-46.3); Red Blood Count 3.73 M/uL (4.7-6.1); White Blood Count 8.47 K/uL (4.8-10.8)
[2019-03-09 06:18] LABS: BUN Creatinine Ratio 10.4 (10-20); Blood Urea Nitrogen 17 mg/dl (7-18); Carbon Dioxide 29 mmol/L (21-32); Chloride 107 mmol/L (98-107); Est GFR (African American) 47.5; Est GFR (Non-African American) 40.9; Glucose 80 mg/dl (70-99); Potassium 4.2 mmol/L (3.5-5.1); Sodium 140 mmol/L (136-145)
[2019-03-09] MEDS: INSULIN ASPART 100 UNITS/ML 3 ML PEN SC SCH ×2 (08:03→11:41)
[2019-03-09] MEDS: CIPROFLOXACIN 500 MG TAB PO SCH (08:27)
[2019-03-09] MEDS: ATORVASTATIN 40 MG TAB PO SCH (08:28)
[2019-03-09] MEDS: METOPROLOL SUCC 50MG EXT REL TAB PO SCH (08:31)
--- NOTE | 2019-03-09 09:03 | Gastroenterology Progress Note ---
Date of Service March 09, 2019 Assessment & Plan (1) Lower GI bleed: Pt is a 78 y/o male with PVD s/p revascularization surgery in November on ASA and Plavix, admitted for rectal bleeding. Suspect likely diverticular bleeding. He hasn't had any more BMs yesterday, no abd pain, n/v. Hgb stable - Advance diet slowly as tolerated - Monitor H/H - Continue to defer colonoscopy - Recommend holding ASA and Plavix till next Wednesday - GI to sign off, pls recall as needed Supervising Physician Co-Signing Physician Notes I have seen and examined the patient and discussed the management with LUCILA Perry. No bowel movements overnite. Hgb is 10.5 and stable. He is feeling much better. Gen- well nourished male in nad, HEENT- no scleral icterus, abd - soft nt nd +bs Labs reviewed Agree with assessment and plan as per Radha's assessment and plan. Subjective Pt reports no BM yesterday. Mostly passing flatus when he tries to defecate but no stools. Denies any abd pain, n/v. Hgb stable around 10. Review of Systems Review of Systems: All systems reviewed & are unremarkable except as noted in HPI & below Physical Exam Constitutional: WD/WN, vitals as above well groomed, cooperative and comfortable Eyes: PERRL, conjunctivae normal, anicteric sclerae ENMT: external ear and nose normal, oropharynx normal Respiratory: normal respiratory effort, lungs clear to auscultation Cardiovascular: RRR, no murmur, no edema Gastrointestinal (Abdomen): normal bowel sounds, soft, nontender, no hepatosplenomegaly Skin: no rashes, warm and dry no jaundice Neurologic: Motor/Sensory: no asterixis Psychiatric: A+Ox3, euthymic affect Lymphatic: no lymphedema Results & Data Vital Signs (Past 12 Hours) Vital Signs Temp Pulse Resp BP Pulse Ox 03/09/19 08:00 36.4 C L 69 20 115/53 L 97 03/09/19 04:14 36.8 C 65 18 123/58 L 95 03/08/19 23:24 36.4 C L 72 20 105/50 L 96
[2019-03-09] MEDS: INSULIN GLARGINE SOLOSTAR 100 UNITS/ML 3 ML PEN SC SCH (09:13)
--- NOTE | 2019-03-09 10:03 | Hospitalist Progress Note ---
Date of Service March 09, 2019 Assessment & Plan (1) Lower GI bleed: Presented with bright red blood per rectum - multiple episodes. Had one more episode overnight. -Likely diverticular bleeding which resolved spontaneously. -Symptomatic anemia with HB - 6.6 --> 10.5 --> 10.5 -Hold Aspirin, Plavix till next wednesday -No plan for colonoscopy as bleeding resolved spontaneously and it is diverticular. -Work up - CT ABD/pelvis diverticulosis, no evidence of diverticulitis. Noted colonoscopy from 2017 showed diverticulosis in the sigmoid to ascending colon -GI cleared for discharge (2) Acute renal failure superimposed on stage 3 chronic kidney disease: Resolved -Baseline creatinine ~1.5-1.6 -Patient presented with worsening of creatinine, secondary to hypovolemia, acute blood loss anemia secondary to GI bleed -Creatinine improved to 1.5 with IV fluids and PRBC transfusion. IVF discontinued -Avoid NSAIDs, contrast studies (3) Acute blood loss anemia: ACUTE BLOOD LOSS ANEMIA SECONDARY TO GI BLEEDING -Patient presented from home with reports of bright red bleeding per rectum; last bleeding was 2 days ago -In the ED, Hgb found to be 6.6; hemodynamically stable --> 10.5 -->10.5 stable -S/P PRBCs 4 units since admission -GI signed off (4) UTI (urinary tract infection): -Urine culture: Positive for E. coli- sanford sensitive -Empiric antibiotic with IV Rocephin - Day 1--> Changed to Ciprofloxacin 500 mg BID to complete total of 7 days course (5) DM type 2 (diabetes mellitus, type 2): -Hgb A1c 7.3 01/2019 -Hold oral agents and 70/30 insulin, -Will, ISS here. -Had multiple hypoglycemic epidoses as just on full diet--> now blood sugar 150s and restarting diet. -Resume home dose on discharge as will be on home diet (6) CKD (chronic kidney disease), stage III: -Baseline creatinine ~1.5-1.6 -Noted to be 1.7 today, mild elevation likely secondary to hypovolemia from blood loss -IVF, follow renal functions (7) PVD (peripheral vascular disease): Hx of of PVD status post left popliteal stent 11/2018 and remote CABG in 1994 -Aspirin and Plavix kept on hold since admission secondary to active GI bleed- discussed with Dr. Pineda (vascular surgeon at [facility] by Dr Christensen) - -Okay to hold dual antiplatelets in the setting of acute GI bleed -Recommends to resume when acceptable bleeding risk for GI. Per discussion with GI, recommend holding dual antiplatelet at least for another week till next wednesday03/13/19 (8) Diabetic foot ulcer: -Ulcer in between left second and third toes has healed -Discussed by Dr Christensen with LUCILA Gonzalez at the wound center -no need for further antibiotics (9) CAD (coronary artery disease): -Stable, no reports of chest pain -Continue beta-alondra and statin; holding aspirin and Plavix as above (10) DVT prophylaxis: SCDs due to GI bleeding CODE STATUS: Full code Disposition: Ok to discharge home today GI signed off- cleared for discharge. No follow up needed at this point. Subjective Patient is doing much better. No more bowel movement since yesterday. No bl eeding episodes since yesterday. Denies any dizziness, shortness of breath, chest tightness, cough, fever, chills. No abdominal pain. Had few episodes of hypoglycemia overnight and is only on full liquid diet Physical Exam Physical Exam: GENERAL- AAOX3, No acute distress LUNGS- Air entry bilaterally equal. No rales, rhonchi, crackles, wheezes heard. HEART- Regular rate and rhythm. No murmurs ABDOMEN- Soft, non tender, non distended, Bowel sounds heard. EXTREMITIES- Good peripheral pulses, no edema, left second and third toe ulcer, healed Results & Data Vital Signs (Past 12 Hours) Vital Signs Temp Pulse Resp BP Pulse Ox 03/09/19 08:00 36.4 C L 69 20 115/53 L 97 03/09/19 04:14 36.8 C 65 18 123/58 L 95 03/08/19 23:24 36.4 C L 72 20 105/50 L 96 (1) Acute renal failure superimposed on stage 3 chronic kidney disease Acute renal failure type: unspecified Qualified Code(s): N17.9 - Acute kidney failure, unspecified; N18.3 - Chronic kidney disease, stage 3 (moderate) (2) UTI (urinary tract infection) Urinary tract infection type: site unspecified Hematuria presence: without hematuria Qualified Code(s): N39.0 - Urinary tract infection, site not specified
--- NOTE | 2019-03-09 10:17 | Discharge Summary ---
Date of Service March 09, 2019 Admission HPI Per Admitting Provider 78-year-old male who presents to the ED with bright red bleeding per rectum and lightheadedness. Patient reports his symptoms began 4 days ago. Patient reports that he was in [place] following up with his vascular surgeon and then started a restaurant on his way home. He reports after his meal, he had gone to the bathroom and had a large amount of bright red blood per rectum. He estimates approximately 1 to 2 cups. He then began traveling home and stopped again and had another episode of bright red blood per rectum. When he got home, he reports he felt generally weak and very lightheaded. He had an additional 3- 4 episodes the following day. He reports that when he was going to the bathroom, he was very lightheaded and diaphoretic. He has had some intermittent lower cramping abdominal pain. He has had nausea but denies vomiting. Reports feeling feverish however did not take his temperature. He reports normal bowel movement yesterday and today. Rectal exam performed by ED physician was negativ e for any signs of bleeding. Patient reports he is developed some mild exertional shortness of breath. No chest pain. He denies any syncopal events. No urinary symptoms. In the ED, hemoglobin is found to be 6.6. Patient has remained hemodynamically stable. Creatinine is 1.7 (baseline runs in the mid ones). CT ABD/pelvis is negative for acute findings. Patient received IVF and was typed and crossed for 2 units PRBC. Principal Diagnosis 1 Lower GI bleeding, likely diverticular bleeding-resolved spontaneously 2. Acute blood loss anemia secondary to above 3. RUBEN on CKD III 4. UTI, E. coli Secondary diagnoses on discharge 1. Peripheral vascular disease 2. CAD 3. Diabetes mellitus type 2 Discharge Exam GENERAL- AAOX3, No acute distress LUNGS- Air entry bilaterally equal. No rales, rhonchi, crackles, wheezes heard. HEART- Regular rate and rhythm. No murmurs ABDOMEN- Soft, non tender, non distended, Bowel sounds heard. EXTREMITIES- Good peripheral pulses, no edema, left second and third toe ulcer, healed Discharge Data Allergies Allergy/AdvReac Type Severity Reaction Status Date / Time Iodinated Contrast- Oral and Allergy Intermediate HIVES Verified 03/06/19 10:31 IV Dye Penicillins Allergy Intermediate Verified 03/06/19 10:31 Consultations 03/06/19 11:40 ED Decision to Admit Stat 03/06/19 13:40 Consult Gastroenterology Routine Ordered Studies 03/06/19 11:33 CT abd pelvis wo con Stat 03/06/19 13:44 US duplex mesenteric Routine Hospital Course (1) Lower GI bleed: Presented with bright red blood per rectum - multiple episodes. Had one more episode overnight. -Likely diverticular bleeding which resolved spontaneously. -Symptomatic anemia with HB - 6.6 --> 10.5 --> 10.5 -Hold Aspirin, Plavix till next wednesday at least (03/13/19) per GI. Reconsider starting it if no more bleeding as needs it for PVD -No plan for colonoscopy as bleeding resolved spontaneously and it is diverticular. -Work up - CT ABD/pelvis diverticulosis, no evidence of diverticulitis. Noted colonoscopy from 2017 showed diverticulosis in the sigmoid to ascending colon -GI cleared for discharge (2) Acute renal failure superimposed on stage 3 chronic kidney disease: Resolved -Baseline creatinine ~1.5-1.6 -Patient presented with worsening of creatinine, secondary to hypovolemia, acute blood loss anemia secondary to GI bleed -Creatinine improved to 1.5 with IV fluids and PRBC transfusion. IVF discontinued -Avoid NSAIDs, contrast studies (3) Acute blood loss anemia: ACUTE BLOOD LOSS ANEMIA SECONDARY TO GI BLEEDING -Patient presented from home with reports of bright red bleeding per rectum; last bleeding was 2 days ago -In the ED, Hgb found to be 6.6; hemodynamically stable --> 10.5 -->10.5 stable -S/P PRBCs 4 units since admission -GI signed off -Monitor outpatient (4) UTI (urinary tract infection): -Urine culture: Positive for E. coli- sanford sensitive -Empiric antibiotic with IV Rocephin - Day 1--> Changed to Ciprofloxacin 500 mg BID to complete total of 7 days course (Day 3/7) (5) DM type 2 (diabetes mellitus, type 2): -Hgb A1c 7.3 01/2019 -Hold oral agents and 70/30 insulin, -Lantus, ISS here. -Had multiple hypoglycemic epidoses as just on full diet--> now blood sugar 150s and restarting diet. -Resume home dose on discharge as will be on home diet (6) CKD (chronic kidney disease), stage III: -Baseline creatinine ~1.5-1.6 -Noted to be 1.7 today, mild elevation likely secondary to hypovolemia from blood loss -IVF, follow renal functions (7) PVD (peripheral vascular disease): Hx of of PVD status post left popliteal stent 11/2018 and remote CABG in 1994 -Aspirin and Plavix kept on hold since admission secondary to active GI bleed- discussed with Dr. Pineda (vascular surgeon at [facility] by Dr Christensen) - -Okay to hold dual antiplatelets in the setting of acute GI bleed -Recommends to resume when acceptable bleeding risk for GI. Per discussion with GI, recommend holding dual antiplatelet at least for another week till next wednesday03/13/19 and than restart if no GI bleeding (8) Diabetic foot ulcer: -Ulcer in between left second and third toes has healed -Discussed by Dr Christensen with LUCILA Gonzalez at the wound center -no need for further antibiotics (9) CAD (coronary artery disease): -Stable, no reports of chest pain -Continue beta-alondra and statin; holding aspirin and Plavix as above (10) DVT prophylaxis: SCDs due to GI bleeding CODE STATUS: Full code Disposition: Ok to discharge home today GI signed off- cleared for discharge. No follow up needed at this point. Total Time Total Time Spent Total Time Spent (In Minutes): 40 minutes Discharge Plan Discharge Items Patient Disposition: Home - Self-Care Reason For Visit: LOWER GI BLEED Discharge Diagnosis: 1. Diverticular bleeding, lower GI bleeding 2. Acute blood loss anemia 3. Acute kidney injury Discharge Goals: Decrease discomfort Activity: Resume your previous activity Non-emergency contact: Primary Care Provider Call non-emergency contact if: your pain is worsening Follow-up/Referrals: Jeanie Gonzalez [Other] - 03/13/19 12:45 pm (Appointment not available for Dr Lee) Diet: Carb Consistent or DM2, Heart Healthy and Low Sodium (2gm) Addtl Provider Instructions: MEDICATION CHANGES 1. Hold Aspirin and Plavix till next follow up appointment - 03/13/19 If no more bleeding episodes, doctor will consider restarting your medications at the next appt 2. New medication- Ciprofloxacin for UTI (E coli) for 5 more days as instructed Prescriptions: New ciprofloxacin HCl 500 mg Tablet 500 mg PO BID 5 Days Qty: 10 RF: 0 Continued atorvastatin [Lipitor] 40 mg tablet 40 mg PO QAM RF: 0 metoprolol succinate [Toprol XL] 100 mg Tablet Extended Release 24 Hr 50 mg PO QAM RF: 0 Novolin 70/30 U-100 Insulin 100 unit/mL (70-30) Suspension 74 unit SUBCUT BID RF: 0 pioglitazone [Actos] 45 mg Tablet 45 mg PO QAM RF: 0 nitroglycerin [Nitrostat] 0.4 mg Tablet, Sublingual 0.4 mg Sublingual DIRECTED PRN (Reason: Chest Pain) RF: 0 cholecalciferol (vitamin D3) [Vitamin D3] 1,000 unit Capsule 1,000 unit PO PM RF: 0 [id number] C-Mn [Glucosamine-Chondroitin Complx] 500-400 mg Capsule 1 cap PO PM RF: 0 cinnamon bark [Cinnamon] 500 mg Capsule 1,000 mg PO BID RF: 0 [place]-3 350 mg-235 mg- 90 mg-597 mg Capsule,Delayed Release(Dr/Ec) 1 cap PO QAM RF: 0 metformin 500 mg tablet 500 mg PO BID RF: 0 tramadol 50 mg tablet 50 mg PO Q6H PRN (Reason: Pain) RF: 0 Discontinued clopidogrel [Plavix] 75 mg tablet 75 mg PO QAM RF: 0 aspirin 81 mg Tablet,Delayed Release (Dr/Ec) 81 mg PO PM RF: 0 Stand-Alone Forms: [facility] Discharge Orders: Discharge Order (Routine); Ordered 03/09/19 Ordered By: Fara Arellano Admission Data Admit Date/Time: 03/06/19 12:20 Attending Provider: Fara Arellano Admit Provider: Shala Christensen Primary Care Provider: Tyson Lee Other Providers: Shoaib Paz ; Erinn Palencia ; Shala Christensen Service: Telemetry Other Pending Studies at Discharge: No
== END 2019-03-09 13:25 | disposition home or self-care (01) | DRG 378 ==
LOC: ED 09:50 → SUATTDRO 12:20 → 2E 12:20